=== PATIENT | female | born 1965 | race Caucasian/White ===

== ENCOUNTER 2024-07-29 17:27 | Emergency (ER) | payer SELFPAY ==
--- NOTE | ~2024-07-29 | CT_ITS ---
CLINICAL INDICATION: Nausea vomiting and diarrhea with abdominal pain. Personal history of bariatric surgery 7 years earlier with subsequent bowel perforation 5 years earlier. COMPARISON: None. TECHNIQUE: Multiple contiguous axial images of the abdomen and pelvis were performed following the ad ministration of with 100 mL Omnipaque-350 intravenous contrast The dose-length product (DLP) was 544.98 mGy-cm. Automated exposure control and iterative reconstruction technique were employed. FINDINGS/OBSERVATIONS: Visualized lower thorax: Bulky calcifications within the right lower lobe, surrounded by parenchymal cyst formation. The remainder of the bilateral lung bases are clear. The heart is of normal size, without pericardial effusion. Liver: The liver demonstrates homogeneous enhancement and is not enlarged measuring 18 cm in longitudinal di mension. Gallbladder and biliary system: The gallbladder is surgically absent. Pancreas: The pancreas enhances homogeneously without ductal dilatation. Spleen: Punctate calcifications identified within the splenic parenchyma, suggesting prior granulomat ous disease. The remainder of the spleen otherwise enhances homogeneously and is not enlarged measuring 10 cm in l ongitudinal dimension. Kidneys: The bilateral kidneys enhance symmetrically without hydronephrosis or renal calculi. Adrenal glands: Unremarkable. Gastrointestinal tract: Multiple loops of fluid-filled small and large bowel, a nonspecific finding. Rectosigmoid diverticulosis without surrounding inflammation. No evidence of obstruction. Mural thickening within the distal esophagus. Postoperative change within the upper abdomen, consistent with patient's history. Enteric staple line within the left mid to lower abdomen, within a loop of minimally distended small bowel with mural thickening and hyperemia. Appendix: The air-filled appendix is of normal caliber (axial series, images 134 through 149). Vasculature: Unremarkable. Lymph nodes: No pathologically enlarged or morphologically suspicious lymph nodes within the retroperitoneum or at the root of the mesentery. Pelvic structures: The bladder is decompressed, and otherwise unremarkable. The uterus is anteverted and anteflexed. Body wall and musculoskeletal: No significant degenerative disease within the lower thoracic or lumbosacral spine. IMPRESSION: No cross-sectional imaging evidence to suggest the presence of bowel obstruction. Mural thickening and hyperemia are identified within the small bowel loops to the left of midline. No significant surrounding inflammatory changes identified to suggest a diffuse enteritis. Evidence of prior granulomatous disease. Reviewed, dictated and finalized at location A. IT UNION TELLER IMPRESSION: No cross-sectional imaging evidence to suggest the presence of bowel obstructio n. Mural thickening and hyperemia are identified within the small bowel loops to t he left of midline. No significant surrounding inflammatory changes identified to suggest a diffuse enteritis. Evidence of prior granulomatous disease.
[2024-07-29 17:29] VITALS: BP 107/52; PULSE 111; RESP 16; TEMP 36.7; O2SAT 98
[2024-07-29 18:18] LABS: Influenza A QL RT-PCR Negative (Negative); Influenza B QL RT-PCR Negative (Negative); RSV RNA, RT-PCR Negative (Negative); SARS-CoV-2 RNA PCR Negative (Negative)
--- NOTE | 2024-07-29 18:32 | ECG_ITS ---
Test Date: 2024-07-29 18:54:46 Measurements Intervals [place] Rate: 91 P: 40 CT: 155 QRS: 60 QRSD: 94 T: 56 QT: 345 QTc: 426 Interpretive Statements SINUS RHYTHM ST DEVIATION AND MODERATE T-WAVE ABNORMALITY, CONSIDER ANTERIOR ISCHEMIA [-0.1+ mV T WAVE IN V3/V4] No previous ECG available for comparison Electronically Signed On 07-30-2024 13:12:17 LOW ALTITUDE AIR DEFENSE OFFICER by Danilo Mesa M.D.
--- OUTSIDE RECORDS SUMMARY | 2024-07-29 18:44 | XMS_ITS | Encounter Summary ---
Author Organization [facility] Address [address] [place] [address] Care Team Providers Care Director Marketing Communications Name Role Phone Franck David MD Primary Care Provider [phone] Encounter Details Date Type Department Care Team ([facility] Contact Info) Description 11/02/2018 Abstract SFL CONVERSION [address] [place] [address] , Generic Conversion, Social History Tobacco Use Types Packs/Day Years Used Date Smoking Tobacco: Never Assessed Comments Unknown Sex and Gender Information Value Date Recorded Sex Assigned at Not on file Legal Sex Female 12:14 AM CDT Gender Identity Not on file Sexual Orientation Not on file documented as of this encounter Plan of Treatment Not on file documented as of this encounter Visit Diagnoses Not on filedocumented in this encounter Additional Health Concerns Infection Onset Date Last Indicated Resolved Time COVID-19 Rule Out 08/06/2020 08/06/2020 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
--- OUTSIDE RECORDS SUMMARY | 2024-07-29 18:44 | XMS_ITS | Clinical Summary ---
Author Organization [facility] Address [address] [place] [address] Care Team Providers Care Rehab Liaison Name Role Phone Franck David MD Primary Care Provider [phone] Allergies Active Allergy Reactions Criticality Noted Date Comments Codeine Rash Medium 08/21/2017 Ibuprofen Unknown 06/13/2020 Per pt was advised to not take due to GI procedure. Medications gabapentin (NEURONTIN) 300 mg capsule Take 1 capsule (300 mg total) by mouth 3 (three) times a day Active Advair Diskus 250-50 mcg/dose diskus inhaler 4 Active fluticasone propionate (FLONASE) 50 mcg/actuation nasal spray Administer 2 sprays into affected nostril(s) daily Active Spiriva with HandiHaler 18 mcg per inhalation capsule [address] (PROTONIX) 40 mg EC tablet 4 Active hydrOXYzine (VISTARIL) 50 mg capsule Take 1 capsule (50 mg total) by mouth 3 (three) times a day as needed Active sertraline (ZOLOFT) 100 mg tablet Take 1 tablet (100 mg total) by mouth daily Active sertraline (ZOLOFT) 25 mg tablet 4 Active solifenacin (VESIcare) 10 mg tabletIndicatio ns:Mixed stress and urge incontinence,No cturia,OAB (overactive bladder) Take 1 tablet (10 mg total) by mouth daily 30 tablet 1 4 09/10/19 25 Active Active Problems No known active problems Social History Tobacco Use Types Packs/Day Years Used Date Smoking Tobacco: Every Day Cigarettes Tobacco Cessation:Ready to Q uit: Not Asked; Counseling Given: Not Answered Personal Safety Answer Date Recorded Getting School Help Needed Not on file 02/18 Comments Unknown Sex and Gender Information Value Date Recorded Sex Assigned at Not on file 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 Gender Identity Not on file Sexual Orientation Not on file Obstetrics History Last Filed Vital Signs Vital Sign Reading Time Taken Comments Blood Pressure 123/80 03/13/2024 10:15 AM CDT Pulse 84 03/13/2024 10:15 AM CDT Temperature 36.7 C (98 F) 03/13/2024 10:15 AM CDT Respiratory Rate - - Oxygen Saturation - - Inhaled Oxygen Concentration - - Weight 80.3 kg (177 lb) 03/13/2024 10:15 AM CDT Height - - Body Mass Index - - Plan of Treatment Health Maintenance Due Date Last Done Comments Cervical Cancer Screening 1964 Colon Cancer Screening-Colonoscopy 1964 Depression Screening 1964 Hepatitis C Screening 1964 DTaP/Tdap/Td Vaccine (1 - Tdap) 1975 Hepatitis B Screening 1982 Regular Well Visit/Exam 18-64 1982 Zoster Vaccine (1 of 2) 2014 Pneumococcal vaccine <65 (2 of 2 - PCV) 05/12/2017 05/12/2016 Breast Cancer Screening-Mammogram 07/14/2023 023, 07/14/2022 Influenza Vaccine (#1) 2024 9, 05/31/2018, 05/12/2016, Additional history exists Insurance [facility] Care Teams Rehab Liaison Relationship Specialty Start Date End Date Franck David MD [address] [place] [address] PCP - General Family Medicine 02/19/24
--- OUTSIDE RECORDS SUMMARY | 2024-07-29 18:44 | XMS_ITS | Clinical Summary ---
Author Organization [facility] Address [address] [place] [address] Care Team Providers Care U.[place]. Commissioner Name Role Phone Franck Joseph MD Primary Care Provider [phone] Allergies Active Allergy Reactions Criticality Noted Date Comments Codeine Rash Medium 08/21/2017 Morphine And Codeine Nausea Only,Vomiting 06/13 Pt states allergy is to codeine. Ibuprofen Unknown 06/13/2020 Per pt was advised to not take due to GI procedure. Medications atorvastatin 20 MG tablet Take 1 tablet (20 mg total) by mouth daily. 2 03/01/2019 Active albuterol sulfate HFA (PROAIR HFA) 108 (90 Base) MCG/ACT inhaler Inhale 2 puffs into the lungs 4 (four) times daily as needed. 05/05/2016 Active hydrOXYzine 50 MG capsule Take 1 capsule (50 mg total) by mouth 3 (three) times daily as needed for Anxiety. Active Melatonin 10 MG Cap Take 10 mg by mouth nightly at bedtime. Active sertraline 100 MG tablet Take 1 tablet (100 mg total) by mouth daily. Active gabapentin 300 MG capsule Take 1 capsule (300 mg total) by mouth 3 (three) times daily. Active raNITIdine HCl (RANITIDINE 150 MAX STRENGTH OR) Take 150 mg by mouth as needed. Active budesonide-form oterol 160-4.5 MCG/ACT inhaler Inhale 2 puffs into the lungs 2 (two) times daily. Active Family History Medical History Relation Comments Breast Cancer Paternal Aunt Relation Status Comments Paternal Aunt Alive Social History Tobacco Use Types Packs/Day Years Used Date Smoking Tobacco: Every Day Cigarettes Smokeless Tobacco: Never Tobacco Cessation:Ready to Q uit: Not Asked; Counseling Given: Not Answered Alcohol Use Standard Drinks/Week Comments Not Currently 0 (1 standard drink = 0.6 oz pure alcohol) Hx of Alcoholism - 2 years ago. Comments No Sex and Gender Information Value Date Recorded Sex Assigned at Not on file Legal Sex Female 12:14 AM CDT Gender Identity Not on file Sexual Orientation Not on file Last Filed Vital Signs Vital Sign Reading Time Taken Comments Blood Pressure 144/69 10/23/2023 8:47 AM CDT Pulse 78 10/23/2023 8:47 AM CDT Temperature 36.2 C (97.2 F) 10/23/2023 8:32 AM CDT Respiratory Rate 16 10/23/2023 8:47 AM CDT Oxygen Saturation 99% 10/23/2023 8:47 AM CDT Inhaled Oxygen Concentration - - Weight 72.6 kg (160 lb) 10/16/2023 11:18 AM CDT Height 167.6 cm (5' 6 ) 10/16/2023 11:18 AM CDT Body Mass Index 25.82 10/16/2023 11:18 AM CDT Plan of Treatment Health Maintenance Due Date Last Done Comments Cervical Cancer Screening Pa p Smear (Age 30 to 64) Every 3 Years 1964 Annual Physical 1967 Pneumococcal Vaccine: Pediatrics (0 to 5 Years) and At-Risk Patients (6 to 64 Years) (1 of 2 - PCV) 1970 Hepatitis C 1982 DTaP, Tdap and Td Vaccines ( 1 - Tdap) 1983 Cervical Cancer Screening Pa p with HPV Testing (Age 30 to 64) Every 5 Years 1994 Cervical Cancer Screening [facility] HPV 1994 Zoster Vaccines (1 of 2) 2014 COVID-19 Vaccine ( - 2023-2 5 season) 2024 Influenza Adult (#1) 2024 Mammogram Screening 07/14/2024 07/14/2022 Colorectal Cancer Screening Colonoscopy (10 Years) 10/22/2033 10/23/2023, 10/23/2023 RSV Immunization or 60+ Years (1 - 1-dose 75+ series) 2039 Meningococcal B Vaccine Aged Out No l onger eligible based on patient's age to complete this topic Meningococcal Vaccine Aged Out No ria flora eligible based on patient's age to complete this topic RSV Immunizations Under 20 Months Aged Out No longer eligible b ased on patient's age to complete this topic Procedures Procedure Name Priority Date/Time Associated Diagnosis Comments COLONOSCOPY 10/23/2023 6:47 AM CDT MG SCREENING W TRISTAN BRYAN DIGI Routine 07/14/2022 7:11 AM RETAIL PRESENTATION SPECIALIST Visit for screening mammogram from Last 3 Months or Most Recently Relevant to Health Maintenance Results * Colonoscopy (10/23/2023 6:47 AM CDT) Franck Joseph MD GI PROCEDURE ORDERABLES Final Result * MG SCREENING W TRISTAN BRYAN DIGI (07/14/2022 7:11 AM RETAIL PRESENTATION SPECIALIST) Anatomical Region Laterality Modality Breast Bilateral Mammography 07/17/2022 4:36 PM RETAIL PRESENTATION SPECIALIST Narrative 07/17/2022 4:37 PM RETAIL PRESENTATION SPECIALIST Examination: Digital screening mammogram with CAD. Clinical history: Asymptomatic patient presents for routine screening. Comparison: 03/13/2017. Technique: Bilateral digital mammograms. The exam was interpreted with the use of a computer-aided detection (CAD) system. Additional 3-D tomosynthesis images were acquired. Tissue density: The breast tissue is heterogeneously dense. Findings: The breast tissue is heterogeneously dense. The dense tissue may obscure some lesions mammographically. Minor glandular asymmetry remains evident. Benign-appearing calcification noted. No suspicious mass, microcalcification or area of architectural distortion can be identified. From a mammographic standpoint, routine followup in one year would seem adequate. IMPRESSION: No suspicious change since 03/13/2017. Recommendation: 1: Routine Screening Bilateral in 1 Year Assessment: ACR BI-RADS 2 - BENIGN FINDING(S) Ordered By: FRANCK JOSEPH Interpreted By: Eladio Eng MD, 07/17/2022 4:36 PM Franck Joseph MD MAMMO Final Result from Last 3 Months or Most Recently Relevant to Health Maintenance Insurance AET Care Teams U.[place]. Commissioner Relationship Specialty Start Date End Date Franck Joseph MD [address] [place] [id number] PCP - General FAMILY PRACTICE 03/14/18
--- OUTSIDE RECORDS SUMMARY | 2024-07-29 18:44 | XMS_ITS | Referral Summary ---
Author Organization [facility] Address [address] [place] [address] Care Team Providers Care Maintenance Dispatcher Name Role Phone Franck David MD Primary Care Provider [phone] Allergies Active Allergy Reactions Criticality Noted Date [...] on file Legal Sex Female 7:52 PM CONCIERGE Gender Identity Not on file Sexual Orientation [...] Mass Index - - Plan of Treatment Not on file Insurance [facility] Care Teams Maintenance Dispatcher Relationship Specialty Start Date End Date Franck David MD [address] [place] [address] PCP - General Family Medicine 02/19/24
[2024-07-29 18:57] VITALS: O2SAT 98
[2024-07-29 19:03] LABS: Basophils Percent Auto 0.2 % (0.2-1.2); Eosinophils Percent Auto 0.2 % (0-4.4); Hematocrit 43.6 % (37.0-47.0); Hemoglobin 14.9 g/dL (12.0-15.0); Immature Granulocyte Absolute 0.07 K/mm3 (0.00-0.031); Immature Granulocyte Percent A 0.6 % (0-0.5); Lymphocytes Absolute Auto 1.05 K/mm3 (0.9-3.2); Lymphocytes Percent Auto 9.2 % (18.3-44.2); Mean Corpuscular HGB Conc 34.2 g/dl (32-36); Mean Corpuscular Volume 90.6 fl (80-100); Mean Platelet Volume 10.1 fl (7.4-10.4); Monocytes Absolute Auto 0.6 K/mm3 (0.1-0.6); Monocytes Percent Auto 4.8 % (2.6-8.5); Neutrophils Absolute Auto 9.7 K/mm3 (1.3-6.7); Platelet Count Result 184 k/mm3 (150-375); Red Blood Count 4.81 M/mm3 (4.2-5.4); Red Cell Distribution Width 13.9 % (11.5-14.5); White Blood Count 11.4 K/mm3 (4.5-10.0)
[2024-07-29 19:09] LABS: Alanine Aminotransferase 18 U/L (6-35); Albumin Level 3.8 g/dL (3.5-5.1); Alkaline Phosphatase 71 U/L (38-126); Anion Gap 12 mmol/L (4-12); Aspartate Amino Transferase 20 U/L (14-36); Bilirubin,Total 0.6 mg/dL (0.2-1.3); Blood Urea Nitrogen 15 mg/dL (7-17); Calcium 8.3 mg/dL (8.4-10.2); Carbon Dioxide 20 mmol/L (22-30); Chloride 100 mmol/L (98-107); Estimated CRCL calculation 77 ml/min; Estimated Glomerular Filt Rate > 60; Glucose 111 mg/dL (65-110); Sodium 132 mmol/L (137-145)
--- NOTE | 2024-07-29 19:15 | ED.GENADULT ---
HPI - General Adult General Chief complaint: Upper Respiratory Infection Stated complaint: flu symptoms Time Seen by Provider: 07/29/24 18:32 History of Present Illness HPI narrative: Patient with history of bariatric surgery 7 years ago, with bowel perforation 5 years ago, presents here with nausea, vomiting, multiple bouts of diarrhea and abdominal pain since last night. Related Data Allergies Allergy/AdvReac Type Severity Reaction Status Date / Time No Known Allergies Allergy Verified 07/29/24 19:02 Review of Systems Review of Systems: All systems reviewed & are unremarkable except as noted in HPI and below Exam Narrative: EXAMINATION OF ORGAN SYSTEMS/BODY AREAS: Constitutional: Vital signs per nursing GENERAL:[No acute distress, non-toxic appearing.] HEAD: Normal with no signs of head trauma. EYES: EOMI, conjunctiva normal ENT: Hearing grossly intact LUNGS: Nonlabored breathing. HEART: Tachycardic ABD: [Soft], no significant tenderness to palpation EXT: Normal range of motion SKIN: [No rashes or lesions.] NEURO: [Alert and oriented x 3. No gross focal sensory or strength deficits.] PSYCH: Normal affect Course Vital Signs Vital signs: Vital Signs Temperature 98.1 F 07/29/24 17:29 Pulse Rate 111 H 07/29/24 17:29 Respiratory Rate 16 07/29/24 17:29 Blood Pressure 107/52 L 07/29/24 17:29 Pulse Oximetry 98 07/29/24 17:29 Oxygen Delivery Room Air 07/29/24 17:29 Temperature 98.1 F 07/29/24 17:29 Pulse Rate 111 H 07/29/24 17:29 Respiratory Rate 16 07/29/24 17:29 Blood Pressure 107/52 L 07/29/24 17:29 Pulse Oximetry 98 07/29/24 18:57 Oxygen Delivery Room Air 07/29/24 18:57 Medical Decision Making [facility] Narrative Medical decision making narrative: Patient with history of bariatric surgery 7 years ago, with bowel perforation 5 years ago, presents here with nausea, vomiting, multiple bouts of diarrhea and abdominal pain since last night; appears tired with some tachycardia on exam but otherwise abdomen soft without significant tenderness. Given her prior surgical history I will obtain CT, and treat symptomatically. Repeat heart rate now in the 80s. She is well-appearing, abdomen still nontender. CT thankfully without any obvious acute abnormality. She is comfortable with outpatient management with return precautions strict return precautions. Vital Signs Vital Signs: Vital Signs Temperature 98.1 F 07/29/24 17:29 Pulse Rate 111 H 07/29/24 17:29 Respiratory Rate 16 07/29/24 17:29 Blood Pressure 107/52 L 07/29/24 17:29 Pulse Oximetry 98 07/29/24 17:29 Oxygen Delivery Room Air 07/29/24 17:29 Temperature 98.1 F 07/29/24 17:29 Pulse Rate 111 H 07/29/24 17:29 Respiratory Rate 16 07/29/24 17:29 Blood Pressure 107/52 L 07/29/24 17:29 Pulse Oximetry 98 07/29/24 18:57 Oxygen Delivery Room Air 07/29/24 18:57 Lab Data 07/29/24 18:51 07/29/24 18:51 Labs: Lab Results 07/29/24 07/29/24 Range/Units 17:33 18:51 WBC 11.4 H (4.5-10.0) K/mm3 RBC 4.81 (4.2-5.4) M/mm3 Hgb 14.9 (12.0-15.0) g/dL Hct 43.6 (37.0-47.0) % MCV 90.6 (80-100) fl MCH 31.0 (26-34) pg MCHC 34.2 (32-36) g/dl RDW 13.9 (11.5-14.5) % Plt Count 184 (150-375) k/mm3 MPV 10.1 (7.4-10.4) fl Immature Gran % (Auto) 0.6 H (0-0.5) % Neut % (Auto) 85.0 H (45.5-73.1) % Lymph % (Auto) 9.2 L (18.3-44.2) % [place] % (Auto) 4.8 (2.6-8.5) % Eos % (Auto) 0.2 (0-4.4) % Baso % (Auto) 0.2 (0.2-1.2) % Lymph # (Auto) 1.05 (0.9-3.2) K/mm3 [place] # (Auto) 0.6 (0.1-0.6) K/mm3 Eos # (Auto) 0.0 (0-0.3) K/mm3 Baso # (Auto) 0.0 (0.0-0.1) K/mm3 Abs Immat Gran (auto) 0.07 H (0.00-0.031) K/mm3 Absolute Neuts (auto) 9.7 H (1.3-6.7) K/mm3 Absolute Nucleated RBC 0.000 (0.0-0.012) K/mm3 Nucleated RBC % 0.0 (0.0-0.2) % Sodium 132 L (137-145) mmol/L Potassium 3.0 L (3.4-5.0) mmol/L Chloride 100 (98-107) mmol/L Carbon Dioxide 20 L (22-30) mmol/L Anion Gap 12 (4-12) mmol/L BUN 15 (7-17) mg/dL Creatinine 0.62 L (0.7-1.0) mg/dL Estim Creat Clear Calc 77 ml/min Estimated GFR > 60 (59 - ) Glucose 111 H (65-110) mg/dL Calcium 8.3 L (8.4-10.2) mg/dL Total Bilirubin 0.6 (0.2-1.3) mg/dL AST 20 (14-36) U/L ALT 18 (6-35) U/L Alkaline Phosphatase 71 (38-126) U/L Troponin I < 0.012 (0.000-0.034) ng/mL Total Protein 7.0 (6.3-8.2) g/dL Albumin 3.8 (3.5-5.1) g/dL Influenza A (RT-PCR) Negative (Negative) Influenza B (RT-PCR) Negative (Negative) RSV (RT-PCR) Negative (Negative) SARS-CoV-2 RNA (RT-PCR) Negative (Negative) Discharge Plan Discharge Clinical Impression: Acute diarrhea Patient Disposition: Home, Self-Care Condition: Stable Instructions: Viral Syndrome (ED) Additional Instructions: Please follow up with your doctor; you can always return for any further issues. If you don't have a PCP you can follow up with the on-call PCP. Patient Language: Spanish Prescriptions: New famotidine 20 mg tablet 20 mg PO DAILY Qty: 30 0RF dicyclomine 20 mg tablet 20 mg PO TID PRN (Reason: abdominal pain) Qty: 30 0RF ondansetron 4 mg tablet,disintegrating 4 mg PO Q8H PRN (Reason: nausea and vomiting) Qty: 10 0RF loperamide 2 mg capsule 2 mg PO Q6H PRN (Reason: loose stool) Qty: 7 0RF Follow-up/Referrals: PHYSICIAN NOT ON STAFF,NONSTAFF [Primary Care Provider] - Luis M Arnold MD [Physician] - 2 Days
[2024-07-29 19:37] LABS: Troponin I < 0.012 ng/mL (0.000-0.034)
[2024-07-29] MEDS: LACTATED RINGERS 1,000 ML 999 ML IV CONT (19:38)
[2024-07-29] MEDS: ONDANSETRON INJ 4 MG/2 ML VIAL IV PUSH (19:38)
[2024-07-29] MEDS: POTASSIUM CHLORIDE INJ 40 MEQ in SODIUM CHLORIDE 0.9% IV 500 ML 130 MEQ IVPB (19:39)
--- NOTE | 2024-07-29 20:52 | PC.NURSE ---
Patient called out and states that her IV was burning. Notified EDP Dr. Moran who will change medication to PO potassium.
[2024-07-29] MEDS: POTASSIUM CHLORIDE 20 MEQ ER TABLET 40 MEQ PO (21:00)
[2024-07-29] MEDS: LOPERAMIDE HCL 2 MG CAPSULE 4 MG PO (21:01)
[2024-07-29] MEDS: DICYCLOMINE HCL 10 MG CAPSULE 20 MG PO (21:02)
[2024-07-29 21:07] VITALS: BP 112/72; PULSE 78; RESP 18; TEMP 36.8; O2SAT 100
== END 2024-07-29 21:08 | disposition home or self-care (01) ==
PROVIDERS: Emergency Medicine; Emergency Provider Emergency Medicine
DX: R19.7 Diarrhea, unspecified (principal); Z20.822 Contact with and (suspected) exposure to COVID-19; Z98.84 Bariatric surgery status
CPT/HCPCS: 36415; 74177; 80053; 84484; 85025; 87637; 93005; 96365; 96366; 96374; 99284; A9270; J2405; J3480; J7040; J7120; Q9967

== ENCOUNTER 2025-03-18 21:35 | Emergency (ER) | payer SELFPAY ==
--- NOTE | ~2025-03-18 | XR_ITS ---
XR chest 2V HOSTORY: SHORTNESS OF BREATH. HX OF ASTHMA AND COPD. . COMPARISON:[ None] FINDINGS: Frontal and lateral views of the chest were obtained. The lungs are clear. The heart size is normal in size. Pulmonary vasculature is unremarkable. Osseous structures are intact. IMPRESSION: No acute lung findings.] [ ] Reviewed, dictated and finalized at location S.
[2025-03-18 21:35] VITALS: BP 139/42; PULSE 103; RESP 24; TEMP 36.7; O2SAT 93
--- NOTE | 2025-03-18 21:42 | ECG_ITS ---
Test Date: 2025-03-18 22:05:25 Measurements Intervals [place] Rate: 109 P: 75 [place]: 166 QRS: 47 QRSD: 97 T: 69 QT: 297 QTc: 401 Interpretive Statements SINUS TACHYCARDIA NONSPECIFIC ST & T-WAVE ABNORMALITY- DIFFUSE LEADS BASELINE ARTIFACT- I, II, III, AVR, AVL, AVF, V1, V4-V6 ABNORMAL ECG Compared to ECG 07/29/2024 18:54:46 HEART RATE HAS INCREASED POSSIBLE ISCHEMIA NO LONGER PRESENT Electronically Signed On 03-19-2025 05:15:47 CDT by Humberto Booker D.O.
[2025-03-18] MEDS: IPRATROPIUM 0.5 MG/ALBUTEROL SULFATE 2.5 MG (BASE) AMPUL.NEB 3 ML INHALATION (21:43)
--- NOTE | 2025-03-18 21:44 | ED_ITS ---
HPI - SOB/Dyspnea General Chief Complaint: Shortness of Breath/Dyspnea Stated Complaint: SOB Time Seen by Provider: 03/18/25 21:41 Source: patient Mode of arrival: ambulatory Limitations: no limitations History of Present Illness HPI Narrative: 59 year old female presents to the Emergency Department complaining of shortnss of breath. Onset a week ago. History of COPD. Progressively worse. Non- productive cough. No fever, nausea, vomiting. No known exposure. Continues to smoke. MD elicited complaint: shortness of breath and cough Pertinent past history: COPD Onset (ago): week(s) (1) Severity: moderate Exacerbating factors: nothing Relieving factors: nothing Known history of: COPD Associated symptoms: denies other symptoms Treatment prior to arrival: bronchodilator Related Data Allergies Allergy/AdvReac Type Severity Reaction Status Date / Time No Known Allergies Allergy Verified 03/18/25 22:36 Review of Systems 2 Review of Systems: All systems reviewed & are unremarkable except as noted in HPI and below Constitutional: Constitutional: Reports as per HPI, Reports no additional constitutional complaints, Denies chills and Denies fever(s) Eyes: Eyes: Reports as per HPI and Reports no additional eye complaints ENT: Reports system reviewed and no additional complaints, except as documented, Denies nasal congestion and Denies sore throat Cardiovascular: Cardiovascular: Reports as per HPI, Reports no additional cardiovascular complaints and Denies chest pain Respiratory: Respiratory: Reports as per HPI, Reports no additional respiratory complaints, Reports cough, Reports dyspnea and Reports wheezing Gastrointestinal: Gastrointestinal: Reports as per HPI, Reports no additional gastrointestinal complaints, Denies abdominal pain, Denies diarrhea, Denies nausea and Denies vomiting Genitourinary: Genitourinary: Reports no additional female genitourinary complaints and Reports as per HPI Musculoskeletal: Musculoskeletal: Reports no additional musculoskeletal complaints Integumentary/Breasts: Skin/Breast: Reports system reviewed and no additional complaints, except as docu Neurologic: Reports system reviewed and no additional complaints, except as documented Psychiatric: Psychiatric: Reports no additional psychiatric complaints Endocrine: Endocrine: Reports no additional endocrine complaints Hematologic/Lymphatic: Hematologic/Lymphatic: Reports no additional hematologic/lymphatic complaints Allergic/Immunologic: Allergic/Immunologic: Reports no additional allergic/immunologic complaints Exam 2 Const: General: healthy appearing Nutritional Appearance: well nourished Orientation/consciousness: patient oriented x3 Limitations: no limitations HENMT: Head: normal to inspection Ears: external ears normal F alexandre/Nose/Sinus: Normal external nose present Face and sinus: normal facial exam Mouth: Yes Normal oral and palatal mucosa present Eyes: Pupils: Equal, round and reactive pupils present EOM: EOMs intact bilaterally Direct Ophthalmoscopy: no photophobia Neck: Neck: normal visual inspection and meningismus present Chest: Chest palpation & inspection: normal inspection of the chest Resp: Effort & Inspection: tachypneic Auscultation: wheezes Cardio: Rate: tachycardic Rhythm: regular rhythm GI: Inspection: non-distended GI Palp: Yes Soft to palpation and No Tenderness to palpation present (GI) : General: Yes bladder normal to palpation Back/Spine/Pelvis: Back: no CVA tenderness Skin: General skin exam: normal color Rashes: no rashes Wounds: no wounds Neuro: General: patient oriented x3 Cranial nerves: Yes Nystagmus not present Speech: normal speech Gait exam (Neuro): Normal gait present O ther: grossly normal Extrem: General: normal to inspection and no clubbing, cyanosis or edema Psych: Mental Status: mental status grossly normal Course Course Emergency Course: 59 y/o female presents to the Emergency Department complaining of shortness of breath. Onset a week ago. Progressively worse. No chest pain. History of COPD. Continues to smoke. No fever, nausea, vomiting, diarrhea. Non- productive cough. No known exposure. PE: tachypnea, exp wheezes, tachycardia CBC: H/H 14.9/44.9, Plt 307; wbc 14.3 with 89 S, 6 L, 4 M CMP: Na 141, K 3.8, Cl 105, CO2 22, Glc 153, BUN 8, Cr 0.44; LFT's normal TNI: <0.012 EKG: ST, 109, NSST D-dimer: 0.26 BNP: 97 Covid /Influenza/ RSV: negative CXR: NAD Tx: court recording monitor, pulse ox, saline lock, DuoNeb, SoluMedrol 125 mg IVP. [helped a little]. Continuous Albuterol 10 mg over hour. Rocephin 1 gm IVPB, Zithromax 500 mg po. *reviewed and discussed results with patient. Discussed further management. Patient wishes to go home and treat outpatient. Patient voices understanding and agreement. Rx and Instructions Vital Signs Vital signs: Vital Signs Temperature 36.7 C 10/22/25 21:35 Pulse Rate 103 H 03/18/25 21:35 Respiratory Rate 24 H 03/18/25 21:35 Blood Pressure 139/42 L 03/18/25 21:35 Pulse Oximetry 93 03/18/25 21:35 Oxygen Delivery Room Air 03/18/25 21:35 Temperature 36.7 C 03/18/25 21:35 Pulse Rate 103 H 03/18/25 21:35 Respiratory Rate 24 H 03/18/25 21:35 Blood Pressure 139/42 L 03/18/25 21:35 Pulse Oximetry 93 03/18/25 21:35 Oxygen Delivery Room Air 03/18/25 21:35 MDM - SOB/Dyspnea Lab Data 03/18/25 21:48 03/18/25 21:48 Labs: Lab Results 03/18/25 03/18/25 03/18/25 Range/Units 21:48 21:49 22:40 WBC 14.3 H (4.8-10.8) K/mm3 RBC 4.79 (4.20-5.40) M/mm3 Hgb 14.9 (12.0-15.0) g/dL Hct 44.9 (35.0-49.0) % MCV 93.7 (78.0-102.0) fL MCH 31.1 H (27.0-31.0) pg MCHC 33.2 (32-36) g/dL RDW 14.6 H (11.6-14.4) % Plt Count 307 (150-420) K/mm3 MPV 9.1 L (9.2-11.8) fl Immature Gran % (Auto) 0.4 H (0.0-0.0) % Neut % (Auto) 88.9 H (50.0-70.0) % Lymph % (Auto) 6.0 L (18.0-42.0) % Boundary % (Auto) 4.4 (2.0-11.0) % Eos % (Auto) 0.0 L (1.0-6.0) % Baso % (Auto) 0.3 (0.0-1.0) % Lymph # (Auto) 0.86 L (1.10-4.50) K/mm3 Boundary # (Auto) 0.63 (0.10-0.90) K/mm3 Eos # (Auto) 0.00 L (0.02-0.50) K/mm3 Baso # (Auto) 0.04 (0.00-0.10) K/mm3 Abs Immat Gran (auto) 0.06 H (0.00-0.00) K/mm3 Absolute Neuts (auto) 12.70 H (1.70-7.20) K/mm3 Absolute Nucleated RBC 0.00 (0.00-0.00) K/mm3 Nucleated RBC % 0.0 (0-0.0) % D-Dimer 0.26 (0.19-0.50) mg/L Sodium 141 (137-145) mmol/L Potassium 3.8 (3.4-5.0) mmol/L Chloride 105 (98-107) mmol/L Carbon Dioxide 22 (22-30) mmol/L Anion Gap 14 H (4-12) mmol/L BUN 8 D (7-17) mg/dL Creatinine 0.44 L (0.7-1.0) mg/dL Estim Creat Clear Calc 105 ml/min Estimated GFR > 60 (59 - ) Glucose 153 H (65-110) mg/dL Calculated Osmolality 293 (285-295) mOsm/kg Calcium 9.7 (8.4-10.2) mg/dL Total Bilirubin 0.3 (0.2-1.3) mg/dL AST 24 (14-36) U/L ALT 17 (6-35) U/L Alkaline Phosphatase 85 (38-126) U/L Troponin I < 0.012 (0.000-0.034) ng/mL NT-Pro-B Natriuret Pep 97 (19.9-100) pg/mL Total Protein 8.8 H (6.3-8.2) g/dL Albumin 4.8 (3.5-5.1) g/dL Influenza A (RT-PCR) Negative (Negative) Influenza B (RT-PCR) Negative (Negative) RSV (RT-PCR) Negative (Negative) SARS-CoV-2 RNA (RT-PCR) Negative (Negative) Discharge Plan Discharge Clinical Impression: COPD exacerbation, Acute bronchitis Patient Disposition: Home Condition: Stable Instructions: Antibiotic Form, How to Stop Smoking (ED), Acute Bronchitis (ED), COPD (Chronic Obstructive Pulmonary Disease) (DC) Additional Instructions: Stop Smoking Continue home nebulizer treatments every 4 hours as needed Take medications as prescribed Follow up Primary Care Physician 48 hours Return as needed Patient Language: Upper Sorbian Prescriptions: New azithromycin [Zithromax Z-Raad] 250 mg tablet See Rx Instructions .ROUTE .COMPLEX Qty: 6 0RF Rx Instructions: For 250 mg dose pack: take 500 mg today (day 1), then 250 mg for 4 days (days 2-5) prednisone 10 mg tablet 10 mg PO DIRECTED Qty: 21 0RF Rx Instructions: Day 1: 6 tabs, Day 2: 5 tabs, Day 3: 4 tabs, Day 4: 3 tabs, Day 5: 2 tabs, day 6: 1 tab albuterol sulfate 2.5 mg /3 mL (0.083 %) solution for nebulization 2.5 mg inhalation Q4H PRN (Reason: shortness of breath or wheezing) Qty: 90 0RF No Action famotidine 20 mg tablet 20 mg PO DAILY Qty: 30 0RF dicyclomine 20 mg tablet 20 mg PO TID PRN (Reason: abdominal pain) Qty: 30 0RF ondansetron 4 mg tablet,disintegrating 4 mg PO Q8H PRN (Reason: nausea and vomiting) Qty: 10 0RF loperamide 2 mg capsule 2 mg PO Q6H PRN (Reason: loose stool) Qty: 7 0RF Follow-up/Referrals: UNKNOWN,DOCTOR [Non-Staff] Time of Disposition: 23:42
[2025-03-18 21:55] LABS: Hematocrit 44.9 % (35.0-49.0); Hemoglobin 14.9 g/dL (12.0-15.0); Immature Granulocyte Percent A 0.4 % (0.0-0.0); Lymphocytes Absolute Auto 0.86 K/mm3 (1.10-4.50); Mean Corpuscular HGB Conc 33.2 g/dL (32-36); Mean Corpuscular Hemoglobin 31.1 pg (27.0-31.0); Mean Corpuscular Volume 93.7 fL (78.0-102.0); Nucleated Red Blood Cells Absolute Auto 0.00 K/mm3 (0.00-0.00); Nucleated Red Blood Cells Perc 0.0 % (0-0.0); Platelet Count Result 307 K/mm3 (150-420); Red Blood Count 4.79 M/mm3 (4.20-5.40); White Blood Count 14.3 K/mm3 (4.8-10.8)
[2025-03-18 22:14] LABS: Alanine Aminotransferase 17 U/L (6-35); Albumin Level 4.8 g/dL (3.5-5.1); Alkaline Phosphatase 85 U/L (38-126); Anion Gap 14 mmol/L (4-12); Aspartate Amino Transferase 24 U/L (14-36); Bilirubin,Total 0.3 mg/dL (0.2-1.3); Blood Urea Nitrogen 8 mg/dL (7-17); Calcium 9.7 mg/dL (8.4-10.2); Carbon Dioxide 22 mmol/L (22-30); Chloride 105 mmol/L (98-107); Estimated Glomerular Filt Rate > 60; Glucose 153 mg/dL (65-110); Osmolality Calculated 293 mOsm/kg (285-295); Potassium 3.8 mmol/L (3.4-5.0); Sodium 141 mmol/L (137-145); Total Protein 8.8 g/dL (6.3-8.2)
[2025-03-18 22:18] LABS: NT Pro B Type Natriuretic Pept 97 pg/mL (19.9-100)
[2025-03-18 22:20] LABS: Estimated CRCL calculation 105 ml/min
[2025-03-18 22:21] LABS: Troponin I < 0.012 ng/mL (0.000-0.034)
--- OUTSIDE RECORDS SUMMARY | 2025-03-18 22:26 | XMS_ITS | Clinical Summary ---
Author Organization [facility] Address [address] [place] [address] Care Team Providers Care Retail Planning Manager Name Role Phone Franck David MD Primary Care Provider [phone] Allergies Active Allergy Reactions Criticality Noted Date [...] by mouth daily 30 tablet 1 4 Active Active Problems No known active problems [...] on file Legal Sex Female 7:52 PM FURNITURE [employer] Gender Identity Not on file Sexual Orientation [...] Screening-Mammogram 07/14/2023 023, 07/14/2022 Influenza Vaccine (#1) 2025 9, 05/31/2018, 05/12/2016, Additional history exists Insurance [facility] Care Teams Retail Planning Manager Relationship Specialty Start Date End Date Franck David MD [address] [place] [address] [place] [address] PCP - General Family Medicine 02/19/24
[2025-03-18] MEDS: ALBUTEROL SULFATE NEB 2.5 MG/3 ML INH 10 MG INHALATION (22:50)
[2025-03-18 23:23] LABS: Influenza A QL RT-PCR Negative (Negative); Influenza B QL RT-PCR Negative (Negative); RSV RNA, RT-PCR Negative (Negative); SARS-CoV-2 RNA PCR Negative (Negative)
[2025-03-18] MEDS: cefTRIAXone 1 GM in SODIUM CHLORIDE 0.9% IV 50 ML 100 ML IVPB (23:39)
[2025-03-18] MEDS: AZITHROMYCIN 250 MG TABLET 500 MG PO (23:40)
[2025-03-19] VITALS: BP 134/79; PULSE 86; RESP 18; O2SAT 98
== END 2025-03-19 | disposition home or self-care (01) ==
PROVIDERS: Emergency Provider Emergency Medicine
DX: J44.1 Chronic obstructive pulmonary disease with (acute) exacerbation (principal); J20.9 Acute bronchitis, unspecified; Z20.822 Contact with and (suspected) exposure to COVID-19
CPT/HCPCS: 36415; 71046; 80053; 83880; 84484; 85025; 85380; 87637; 93005; 96365; 96375; 99284; A9270; J0696; J2919